=== PATIENT | male | born 1980 | race Caucasian/White ===

== ENCOUNTER 2023-10-20 17:57 | Emergency (ER) | payer OTHER, SELFPAY ==
[2023-10-20 18:25] VITALS: BP 138/71; PULSE 88; RESP 16; TEMP 36; O2SAT 97; BMI 25.8
--- NOTE | 2023-10-20 18:31 | ED.GENADULT ---
HPI - General Adult General Chief complaint: Back Pain/Injury Stated complaint: sciatica Time Seen by Provider: 10/20/23 18:55 Source: patient Mode of arrival: ambulatory Limitations: no limitations History of Present Illness ED Provider: Linda Melgar PA-C HPI narrative: 42-year-old male with a history asthma, hepatitis-C, opioid use disorder on Suboxone MD complaint: Back pain and right knee pain Related Data Allergies Allergy/AdvReac Type Severity Reaction Status Date / Time codeine [CODEINE] Allergy Severe ANAPHYLAXIS Verified 10/20/23 18:28 iodine [IODINE] Allergy Severe ANAPHYLAXIS Verified 10/20/23 18:28 shellfish derived Allergy Anaphylaxis Verified 10/20/23 18:28 sulfamethoxazole Allergy Anaphylaxis Verified 10/20/23 18:28 [From Bactrim] trimethoprim [From Bactrim] Allergy Anaphylaxis Verified 10/20/23 18:28 acetaminophen [ACETAMINOPHEN] AdvReac Mild ABD PAIN Verified 10/20/23 18:28 PMFSH Social History Social History Advance Directives: No Advance Directives Information Provided: No Physical Exam ED Vital Signs: Vital Signs - 24 hr 10/20/23 18:25 Temperature 96.8 F Pulse Rate 88 Respiratory Rate 16 Blood Pressure 138/71 Pulse Oximetry 97 Oxygen Delivery Method Room Air BMI result Body Mass Index 25.8 Course Course Course Narrative: RME: Done by CARLITO Dela Cruz: 42 yold male presents to the ED for right sided low back radiating down right leg and also right knee pain. pmh of fracture tail bone. no recent trauma. Xrays ordered. spine tenderness on palpation. Discharge Plan Discharge Clinical Impression: Sciatica Patient Disposition: Left W/O Completing Treatment Discharge Date/Time: 10/20/23 19:33
--- OUTSIDE RECORDS SUMMARY | 2023-10-20 19:25 | XMS_ITS | Continuity of Care Document ---
Author Organization [facility] ter Address [address] [place] [address]- Care Team Providers Care Steam Setter Name Role Phone Not on Staff, PCP Primary Care Physician Unavail able Encounter [facility] [place] Date(s): 11/07/22 - 11/07/[address] [address]- Discharge Disposition: A-D/C Walkout Attending Physician: Rosa Chacon DO Admitting Physician: Rosa Chacon DO Referring Physician: Not on Staff, Referring MD Allergies, Adverse Reactions, Alerts Substance Reaction Severity Status codeine Active iodine topical Active shellfish Active Bactrim Anaphylaxis Active Medications gabapentin 800 mg oral tablet 1 tablet = 800 mg, By Mouth, 3 times a day, # 270 tablet, 0 Refills, Maintenance, 12/23/19 3:18:00 EDT, Tablet Start Date: 12/23/19 Status: Ordered Remeron 30 mg oral tablet 1 tablet = 30 mg, By Mouth, Daily at bedtime, # 30 tablet, 0 Refills, Maintenance, 12/23/19 3:18:00EDT, Tablet Start Date: 12/23/19 Status: Ordered Wellbutrin SR 150 mg/12 hours oral tablet, extended release 1 tablet = 150 mg, By Mouth, 2 times a day, # 180 tablet, 0 Refills, Maintenance, 12/23/19 3:18:00 EDT, ER Tablet Start Date: 12/23/19 Status: Ordered Vital Signs Most recent to oldest [Reference Range]: 1 2 Height 178 cm (11/07/22 6:46 PM) Weight 79 kg (11/07/22 6:46 PM) Oxygen Saturation [94-100 %] 96 % (11/07/22 6:46 PM) 99 % (11/07/22 6:43 PM) Pulse Rate [55-90 bpm] 97 bpm *H* (11/07/22 6:46 PM) 100 bpm *H* (11/07/22 6:43 PM) Body Mass Index [18.5-24.99 kg/m2] 24.93 kg/m2 (11/07/22 6:46 PM) Blood Pressure [90-138/55-84 mm Hg] 146/ 79mm Hg *H* (11/07/22 6:46 PM) Respiratory Rate [16-30 br/min] 18 br/mi n (11/07/22 6:46 PM) 18 br/min (11/07/22 6:43 PM) Temperature [96.8-100.4 DegF] 98.5 DegF (11/07/22 6:46 PM) Mode of Delivery (Oxygen) Room air (11/07/22 6:46 PM) Room air (11/07/22 6:43 PM) Blood pressure sites Arm, right (11/07/22 6:46 PM) Temperature Route Oral (11/07/22 6:46 PM) Dry Weight 79 kg (11/07/22 6:46 PM) Weight Obtained Via Patient/family state d (11/07/22 6:46 PM) Dry Weight Obtained Via Patient/family s tated (11/07/22 6:46 PM) Social History Social History Type Response Smoking Status 10 or more cigarette s (1/2 pack or more)/day in last 30 days entered on: 12/23/19 Sex Patient Care team information Care Team Personnel Name: Not on Staff, PCP Position: [facility] Physician (General Medicine) Member Role: PCP
--- OUTSIDE RECORDS SUMMARY | 2023-10-20 19:25 | XMS_ITS | Continuity of Care Document ---
Author Organization [facility] ter Address [address] [place] [address]- Care Team Providers Care Fitness Management Director Name Role Phone Not on Staff, PCP Primary Care Physician Unavail able Encounter [facility] [place] Date(s): 12/24/22 - 01/26/[address] [address]- Attending Physician: Eufemia ANTHONY, Tara Mccurdy Admitting Physician: Eufemia ANTHONY, Tara Mccurdy Referring Physician: Tara Fall NP Allergies, Adverse Reactions, Alerts Substance Reaction Severity Status codeine Active shellfish Active Bactrim Anaphylaxis Active iodine topical Active Medications gabapentin 800 mg oral tablet [...] ER Tablet Start Date: 12/23/19 Status: Ordered Social History Social History Type Response Smoking Status 10 or more cigarette s (1/2 pack or more)/day in last 30 days entered on: 12/23/19 Sex Patient Care team information Care Team Personnel Name: Not on Staff, PCP Position: [facility] Physician (General Medicine) Member Role: PCP Care Team Related Persons Name: LUANA OLSON Address: home [address] [place] [id number]
--- OUTSIDE RECORDS SUMMARY | 2023-10-20 19:25 | XMS_ITS | Continuity of Care Document ---
Author Organization [facility] ter Address [address] [place] [address]- Care Team Providers Care Fur Remodeler Name Role Phone Not on Staff, PCP Primary Care Physician Unavail able Encounter [facility] [place] Date(s): 05/17/23 - 05/18/[address] [address]- Discharge Disposition: A-D/C Walkout Attending Physician: Not on Staff, Attending MD Admitting Physician: Not on Staff, Admitting MD Referring Physician: Not on Staff, Referring MD Allergies, Adverse Reactions, Alerts Substance Reaction Severity Status codeine Active Bactrim Anaphylaxis Active iodine topical Active shellfish Active Medications gabapentin 800 mg oral tablet [...] [Reference Range]: 1 2 Height 178 cm (05/17/23 6:14 PM) Weight 80 kg (05/17/23 6:14 PM) Oxygen Saturation [94-100 %] 99 % (05/17/23 6:14 PM) 96 % (05/17/23 6:10 PM) Pulse Rate [55-90 bpm] 112 bpm *H* (05/17/23 6:14 PM) 111 bpm *H* (05/17/23 6:10 PM) Body Mass Index [18.5-24.99 kg/m2] 25.25 kg/m2 *H* (05/17/23 6:14 PM) Blood Pressure [90-138/55-84 mm Hg] 166/ 82mm Hg *H* (05/17/23 6:14 PM) Respiratory Rate [16-30 br/min] 18 br/mi n (05/17/23 6:14 PM) Temperature [96.8-100.4 DegF] 97.8 DegF (05/17/23 6:14 PM) Mode of Delivery (Oxygen) Room air (05/17/23 6:14 PM) Room air (05/17/23 6:10 PM) Blood pressure sites Arm, left (05/17/23 6:14 PM) Temperature Route Oral (05/17/23 6:14 PM) Dry Weight 80 kg (05/17/23 6:14 PM) Social History Social History Type Response Smoking Status 10 or more cigarette s (1/2 pack or more)/day in last 30 days entered on: 12/23/19 Sex Patient Care team information Care Team Personnel Name: Not on Staff, PCP Position: S Physician (General Medicine) Member Role: PCP Care Team Related Persons Name: LUANA OLSON Address: home [address] [place] [address]
--- OUTSIDE RECORDS SUMMARY | 2023-10-20 19:25 | XMS_ITS | Continuity of Care Document ---
Author Organization [facility] ter Address [address] [place] [address]- Care Team Providers Care Humidifier Attendant Name Role Phone Not on Staff, PCP Primary Care Physician Unavail able Encounter [facility] [place] Date(s): 09/19/23 - 09/19/[address] [address]- Discharge Disposition: A-D/C Walkout Attending Physician: Not [...] [Reference Range]: 1 2 Height 178 cm (09/19/23 2:20 PM) Weight 81.8 kg (09/19/23 2:20 PM) Oxygen Saturation [94-100 %] 97 % (09/19/23 2:20 PM) Pulse Rate [55-90 bpm] 95 bpm *H* (09/19/23 2:20 PM) 102 bpm *H* (09/19/23 2:12 PM) Body Mass Index [18.5-24.99 kg/m2] 25.82 kg/m2 *H* (09/19/23 2:20 PM) Blood Pressure [90-138/55-84 mm Hg] 133/ 84mm Hg (09/19/23 2:20 PM) Respiratory Rate [16-30 br/min] 18 br/mi n (09/19/23 2:20 PM) 18 br/min (09/19/23 2:12 PM) Temperature [96.8-100.4 DegF] 98 DegF (09/19/23 2:20 PM) Mode of Delivery (Oxygen) Room air (09/19/23 2:20 PM) Blood pressure sites Arm, right (09/19/23 2:20 PM) Temperature Route Oral (09/19/23 2:20 PM) Dry Weight 81.8 kg (09/19/23 2:20 PM) Weight Obtained Via Patient/family state d (09/19/23 2:20 PM) Dry Weight Obtained Via Patient/family s tated (09/19/23 2:20 PM) Social History Social History Type Response Smoking Status 10 or more cigarette s (1/2 pack or more)/day in last 30 days entered on: 12/23/19 Sex Patient Care team information Care Team Personnel Name: Not on Staff, PCP Position: S Physician (General Medicine) Member Role: PCP Care Team Related Persons Name: LUANA LOSON Address: home [address] [place] [id number]
--- OUTSIDE RECORDS SUMMARY | 2023-10-20 19:25 | XMS_ITS | Continuity of Care Document ---
Author Organization [facility] ter Address [address] [place] [address]- Care Team Providers Care Radar Air Traffic Controller Name Role Phone Not on Staff, PCP Primary Care Physician Unavail able [place] [facility] [place] 10[place]/[address] [address]- Discharge Disposition: A-D/C Walkout Attending Physician: Not [...] recent to oldest [Reference Range]: 1 2 3 Height 178 cm (10/29/22 5:42 PM) 178 cm (10/29/22 3:04 PM) Weight 87 kg (10/29/22 5:42 PM) 87 kg (10/29/22 3:04 PM) Oxygen Saturation [94-100 %] 96 % (10/29/22 5:42 PM) 97 % (10/29/22 3:04 PM) 94 % (10/29/22 3:03 PM) Pulse Rate [55-90 bpm] 84 bpm (10/29/22 5:42 PM) 85 bpm (10/29/22 3:04 PM) 93 bpm *H* (10/29/22 3:03 PM) Body Mass Index [18.5-24.99 kg/m2] 27.46 kg/m2 *H* (10/29/22 5:42 PM) 27.46 kg/m2 *H* (10/29/22 3:04 PM) Blood Pressure [90-138/55-84 mm Hg] 129/77mm Hg (10/29/22 5:42 PM) 144/83mm Hg *H* (10/29/22 3:04 PM) Respiratory Rate [16-30 br/min] 16 br/min (10/29/22 5:42 PM) 16 br/min (10/29/22 3:04 PM) Temperature [96.8-100.4 DegF] 97.9 DegF (10/29/22 5:42 PM) 98.1 DegF (10/29/22 3:04 PM) Mode of Delivery (Oxygen) Room air (10/29/22 5:42 PM) Room air (10/29/22 3:04 PM) Room air (10/29/22 3:03 PM) Blood pressure sites Arm, left (10/29/22 5:42 PM) Arm, left (10/29/22 3:04 PM) Temperature Route Oral (10/29/22 5:42 PM) Oral (10/29/22 3:04 PM) Dry Weight 87 kg (10/29/22 5:42 PM) 87 kg (10/29/22 3:04 PM) Weight Obtained Via Standing scale (10/29/22 3:04 PM) Social History Social History Type Response Smoking Status 10 or more cigarette s (1/2 pack or more)/day in last 30 days entered on: 12/23/19 Sex Patient Care team information Care Team Personnel Name: Not on Staff, PCP Position: [facility] Physician (General Medicine) Member Role: PCP
--- OUTSIDE RECORDS SUMMARY | 2023-10-20 19:25 | XMS_ITS | Continuity of Care Document ---
Author Organization [facility] ter Address [address] [place] [address]- Care Team Providers Care Beverage Specialist Name Role Phone Not on Staff, PCP Primary Care Physician Unavail able Encounter [facility] [place] Date(s): 12/24/22 - 01/23/[address] [address]- Attending Physician: Eufemia ANTHONY, Tara Mccurdy Admitting [...] Related Persons Name: LUANA OLSON Address: home [address] [place] [phone]
== END 2023-10-20 19:33 | disposition left against medical advice (07) ==
PROVIDERS: Emergency Provider Emergency Medicine
DX: M54.41 Lumbago with sciatica, right side (principal); M25.561 Pain in right knee
CPT/HCPCS: 99281